=== PATIENT | male | born 1945 | race Two or more races ===

== ENCOUNTER → 2024-01-23 | Outpatient (CLI) | payer MEDICARE, MEDICAID, SELFPAY ==
[2024-01-23 10:59] LABS: Anion Gap 6 (7-16); BUN/Creatinine Ratio 14 Ratio (12-20); Blood Urea Nitrogen 11 mg/dL (9-23); Calcium 9.8 mg/dL (8.3-10.6); Carbon Dioxide 31.4 mMol/L (20.0-31.0); Chloride 106 mMol/L (98-107); Creatinine (Component) 0.8 mg/dL (0.6-1.3); Glucose 100 mg/dL (74-106); Osmolality,Calculated 284 (275-295); Potassium 3.9 mMol/L (3.4-5.1); Sodium 143 mMol/L (136-145); eGFR > 60 See Note
== END | disposition home or self-care (01) ==
LOC: COPL 09:29
PROVIDERS: PCP Family Medicine; Referring Provider Internal Medicine Cardiovascular Disease; Visit Provider Internal Medicine Cardiovascular Disease
DX: I10 Essential (primary) hypertension (principal)
CPT/HCPCS: 36415; 80048